=== PATIENT | female | born 1990 | race Hispanic/Latino ===

== ENCOUNTER 2018-05-31 20:47 | Emergency (ER) | payer BC ==
[2018-05-31 20:52] VITALS: O2SAT 100
[2018-05-31] MEDS ORDERED: Sodium Chloride 0.9% 1,000 ML IV STA (21:12)
[2018-05-31 22:10] LABS: SQUAMOUS EPITHIAL 2 /hpf (0-5); URINE AMORPHOUS SEDIMENT FEW /ul (<OCC); URINE BACTERIA RARE (<OCC); URINE BILIRUBIN NEGATIVE (NEGATIVE); URINE BLOOD MODERATE (NEGATIVE); URINE CLARITY TURBID (Clear); URINE COLOR YELLOW (YELLOW); URINE GLUCOSE (UA) NEG (NEGATIVE); URINE LEUKOCYTE ESTERASE NEG Leu/uL (Negative); URINE PROTEIN NEGATIVE (NEGATIVE); URINE UROBILINOGEN 0.2-1.0 mg/dL (0.2-1.0)
[2018-05-31 22:18] LABS: BASO # 0.1 K/uL (0.0-0.2); EOS # 0.2 K/uL (0.0-0.7); EOS % 3.3 % (0.0-4.0); HEMOGLOBIN 12.1 g/dL (12.0-16.0); LYMPH # 2.5 K/uL (1.0-4.3); MEAN CELL VOLUME 83.5 fl (81.0-99.0); MEAN CORPUSCULAR HEMOGLOBIN 26.7 pg (27.0-31.0); MEAN PLATELET VOLUME 8.4 fl (7.2-11.7); MONO # 0.8 K/uL (0.0-0.8); MONO % 10.4 % (0.0-10.0); NEUT # 3.9 K/uL (1.8-7.0); NEUT % 52.3 % (50.0-75.0); RBC 4.55 Mil/uL (3.80-5.20); RED CELL DISTRIBUTION WIDTH 14.7 % (11.5-14.5); WHITE BLOOD COUNT 7.5 K/uL (4.8-10.8)
[2018-05-31 22:26] LABS: ALB/GLOB RATIO 1.3 (1.0-2.1); ALBUMIN 4.2 g/dL (3.5-5.0); ALT/SGPT 27 U/L (9-52); AST/SGOT 26 U/L (14-36); BLOOD UREA NITROGEN 22 mg/dl (7-17); CALCIUM 9.4 mg/dL (8.4-10.2); GFR NON-AFRICAN AMERICAN > 60; LIPASE 115 U/L (23-300)
--- NOTE | 2018-05-31 22:26 | ED PDOC ---
HPI: Female Pain Time Seen by Provider: 05/31/18 20:55 Chief Complaint (Nursing): Abdominal Pain Chief Complaint (Provider): Pelvic Pain History Per: Patient History/Exam Limitations: no limitations Onset/Duration Of Symptoms: Days (x 3) Current Symptoms Are (Timing): Still Present Quality Of Discomfort: Sharp, Stabbing, "Pain" Alleviating Factors: Leaning Forward Additional Complaint(s): 27 year old female presents to the ED with sharp, stabbing pain in her right pelvic area that began 3 days ago. Patient reports that pain resolved yesterday and returned today even worse, prompting visit to the ED. Pain is worse with movement and is alleviated by bending forward. She did not take any medications at home for symptoms. Denies dysuria, nausea, vomiting, diarrhea, back pain, fever and chills. Of note, pt. states she just started her menstruation today. PMD: none provided Abnormal Vaginal Bleeding: No Past Medical History Reviewed: Historical Data Vital Signs: Last Vital Signs Temp 98.3 F 05/31/18 20:50 Pulse 61 05/31/18 20:50 Resp 16 05/31/18 20:50 BP 123/75 05/31/18 20:50 Pulse Ox 100 05/31/18 20:50 - Medical History PMH: No Chronic Diseases - Surgical History Surgical History: No Surg Hx - Family History Family History: States: Unknown Family Hx - Allergies Allergies/Adverse Reactions: Allergies Allergy/AdvReac Type Severity Reaction Status Date / Time No Known Allergies Allergy Verified 05/31/18 20:52 Review of Systems ROS Statement: Except As Marked, All Systems Reviewed And Found Negative Constitutional: Negative for: Fever, Chills Gastrointestinal: Negative for: Nausea, Vomiting, Diarrhea Genitourinary Female: Positive for: Pelvic Pain (sharp, stabbing in right side of pelvis). Negative for: Dysuria Physical Exam - Reviewed Nursing Documentation Reviewed: Yes Vital Signs Reviewed: Yes - Physical Exam Appears: Positive for: No Acute Distress Head Exam: Positive for: ATRAUMATIC, NORMAL INSPECTION, NORMOCEPHALIC Skin: Positive for: Normal Color, Warm, Dry Eye Exam: Positive for: Normal appearance, EOMI, PERRL Neck: Positive for: Normal, Painless ROM, Supple Cardiovascular/Chest: Positive for: Regular Rate, Rhythm. Negative for: Murmur Respiratory: Positive for: Normal Breath Sounds. Negative for: Respiratory Distress Gastrointestinal/Abdominal: Positive for: Normal Exam, Soft (soft to deep palpation). Negative for: Tenderness, Guarding Extremity: Positive for: Normal ROM (upper and lower extremities). Negative for: Deformity Neurologic/Psych: Positive for: Alert, Oriented. Negative for: Motor/Sensory Deficits - Laboratory Results Result Diagrams: 05/31/18 22:11 05/31/18 22:11 - ECG O2 Sat by Pulse Oximetry: 100 (RA) Pulse Ox Interpretation: Normal - Progress Re-evaluation Time: 23:24 (Informed of results. Pt. offered CT but refused. Pt. states she will return to ED if pain worsens. Abd and pelvis remains soft and non-tender to deep palpation. Negative rebound tenderness, psoas sign, obturator sign. Strict return precautions given.) Condition: Re-examined, Improving,but remains with symptoms Medical Decision Making Medical Decision Makin:12 Initial Plan: --CMP --CBC --Toradol 15 mg IVP --UA --Transvag US --NS IV --Lipase Scribe Attestation: Documented by Gypsy Villegas acting as a scribe for Christian Teixeira PA-C Provider Scribe Attestation: All medical record entries made by the Scribe were at my direction and personally dictated by me. I have reviewed the chart and agree that the record accurately reflects my personal performance of the history, physical exam, medical decision making, and the department course for this patient. I have also personally directed, reviewed, and agree with the discharge instructions and disposition. Disposition - Clinical Impression Clinical Impression: Pelvic pain - Patient ED Disposition Is Patient to be Admitted: No - Disposition Referrals: Jassi Phillips [Outside] Disposition: Routine/Home Disposition Time: 23:24 Condition: IMPROVED Additional Instructions: FOLLOW UP WITH PMD FOR FURTHER EVALUATION RETURN TO ED IMMEDIATELY IF SYMPTOMS WORSEN DISHA H WILDES, thank you for letting us take care of you today. Your provider was Tony Trammell MD and you were treated for ABD PAIN. The emergency medical care you received today was directed at your acute symptoms. If you were prescribed any medication, please fill it and take as directed. It may take several days for your symptoms to resolve. Return to the Emergency Department if your symptoms worsen, do not improve, or if you have any other problems. Please contact your doctor or call one of the physicians/clinics you have been referred to that are listed on the Patient Visit Information form that is included in your discharge packet. Bring any paperwork you were given at discharge with you along with any medications you are taking to your follow up visit. Our treatment cannot replace ongoing medical care by a primary care provider outside of the emergency department. Thank you for allowing the [facility] team to be part of your care today. If you had an X-Ray or CT scan: A Radiologist will review the ED reading if any change in treatment is needed we will contact you. If you had a blood, urine, or wound culture: It will take several days for the results, if any change in treatment is needed we will contact you. If you had an STI test: It will take 48 hours for the results. Please call after 1 week if you have not heard back. Instructions: Acute Pelvic Pain (DC) Forms: Veronica (Yoruba) Print Language: ARGENTINE
[2018-05-31 23:34] VITALS: BP 99/54; PULSE 64; RESP 18; TEMP 98.2
--- NOTE | 2018-06-01 09:32 | US ---
Date of service: 05/31/2018 HISTORY: R sided pelvic pain COMPARISON: None available. TECHNIQUE: Transvaginal pelvic ultrasound was performed. FINDINGS: UTERUS: Measures 7.1 x 4.7 x 6.5 cm. Retroverted, normal in size and appearance. No fibroid or other mass lesion seen. ENDOMETRIUM: Measures 15 mm in diameter. Unremarkable. CERVIX: No cervical abnormality identified. RIGHT OVARY: Measures 4.7 x 2.0 x 2.4 cm. No solid mass. Normal flow. LEFT OVARY: Measures 3.7 x 1.7 x 3.5 cm. No solid mass. Normal flow. FREE FLUID: No significant free fluid noted. OTHER FINDINGS: None. IMPRESSION: Normal pelvic ultrasound. A preliminary report was provided by [employer].
== END 2018-05-31 23:37 | disposition home or self-care (01) ==
LOC: H.ER 20:47
DX: R10.2 Pelvic and perineal pain (principal)
CPT/HCPCS: 76830; 80053; 81003; 81025; 83690; 85025; 96361; 96374; 99283; J1885; J7030